=== PATIENT | female | born 1950 | race Caucasian/White ===

== ENCOUNTER → 2024-04-05 | Outpatient (CLI) | payer MEDICARE, OTHER ==
[2024-04-05 13:41] LABS: Source, Urine Clean Catch
[2024-04-05 14:50] LABS: Appearance, Urine Clear (Clear); Bilirubin, Urine Neg (Neg); Blood, Urine 1+ (Neg); Color, Urine Yellow (P-Yellow); Glucose Qualitative, Urine 1+ (Neg); Ketones, Urine Neg (Neg); Leukocyte Esterase, Urine 1+ (Neg); Nitrite, Urine Neg (Neg); Protein, Urine 1+ (Neg); Urobilinogen, Urine NORM (Normal)
[2024-04-05 15:06] LABS: Amorphous Heavy (0-Heavy)
[2024-04-05 15:07] LABS: Uric Acid Crystals Mod /hpf
[2024-04-05 15:09] LABS: Bacteria Few /hpf; Squamous Epithelial Cells Few /hpf (Few)
== END | disposition home or self-care (01) ==
LOC: LAB 13:37 → LAB SHORT 13:37
PROVIDERS: Physician Assistant
DX: N39.0 Urinary tract infection, site not specified (principal)
CPT/HCPCS: 81001; 87086; 87147

== ENCOUNTER 2024-06-01 10:54 | Day surgery (SDC) | payer MEDICARE, OTHER ==
[~2024-06-01] VITALS: Ht 142.2 cm; Wt 67.6 kg
[~2024-06-01 10:54] MED LIST: Lactated Ringer's 1,000 ML IV ONE; propofoL 50 ML IV ONE
[2024-06-01] MEDS ORDERED: ELIQUIS2.5 MG (11:17)
[2024-06-01] MEDS ORDERED: ALEN70 (11:17)
[2024-06-01] MEDS ORDERED: LOSARTAN POTAS100 M1 (11:18)
[2024-06-01] MEDS ORDERED: METAMUCIL POWD798 GM (11:19)
[2024-06-01] MEDS ORDERED: METO25ER (11:31)
[2024-06-01] MEDS ORDERED: SERT50 (11:33)
[2024-06-01] MEDS ORDERED: LOSA50 (11:33)
[2024-06-01] MEDS ORDERED: CARB10OTL (11:34)
[2024-06-01] MEDS ORDERED: ERGO50000 (11:34)
[2024-06-01] MEDS ORDERED: PRAV20 (11:35)
[2024-06-01] MEDS ORDERED: BISA10S (11:35)
[2024-06-01] MEDS ORDERED: DESITIN DAILY136 GM (11:36)
[2024-06-01] MEDS ORDERED: Milk Of Ma400 MG/5 M (11:37)
[2024-06-01] MEDS ORDERED: NYSTRIT (11:37)
[2024-06-01] MEDS ORDERED: LOPERAMIDE212 (11:37)
[2024-06-01] MEDS ORDERED: Lactated Ringer's 1,000 ML IV ONE (11:45)
== END 2024-06-01 13:05 | disposition home or self-care (01) ==
LOC: ORSCSDS 10:54
PROVIDERS: Internal Medicine Gastroenterology
PROC: 0DJD8ZZ Inspection of Lower Intestinal Tract, Via Natural or Artificial Opening Endoscopic (ICD-10-PCS; principal; 2024-06-01 12:30)
DX: Z12.11 Encounter for screening for malignant neoplasm of colon (principal); R19.5 Other fecal abnormalities; Z83.719 Family history of colon polyps, unspecified; K57.30 Diverticulosis of large intestine without perforation or abscess without bleeding; F41.9 Anxiety disorder, unspecified; I10 Essential (primary) hypertension; E78.5 Hyperlipidemia, unspecified; I48.0 Paroxysmal atrial fibrillation; Z79.01 Long term (current) use of anticoagulants; Z79.899 Other long term (current) drug therapy
CPT/HCPCS: J2704; J7120

== ENCOUNTER 2024-08-25 19:47 | Emergency (ER) | payer MEDICARE, OTHER ==
[~2024-08-25] VITALS: Ht 142.2 cm; Wt 66.7 kg
[~2024-08-25 19:47] MED LIST changes: +ALEN70; +BISA10S; +CARB10OTL; +DESITIN DAILY136 GM; +ELIQUIS2.5 MG; +ERGO50000; +LOPERAMIDE212; +LOSA50; +LOSARTAN POTAS100 M1; -Lactated Ringer's 1,000 ML IV ONE; +METAMUCIL POWD798 GM; +METO25ER; +Milk Of Ma400 MG/5 M; +NYSTRIT; +PRAV20; +SERT50; -propofoL 50 ML IV ONE
[2024-08-25] MEDS ORDERED: POLYTRIM EYE DR10 M1 BOTHEYES (20:11)
== END 2024-08-25 22:34 | disposition home or self-care (01) ==
LOC: ER 19:47
DX: H10.9 Unspecified conjunctivitis (principal); Z79.899 Other long term (current) drug therapy; Z88.5 Allergy status to narcotic agent; Z88.8 Allergy status to other drugs, medicaments and biological substances
CPT/HCPCS: 99282

== ENCOUNTER 2024-11-02 05:35 | Emergency (ER) | payer MEDICARE, OTHER ==
[~2024-11-02] VITALS: Ht 165.1 cm; Wt 90.7 kg
[~2024-11-02 05:35] MED LIST changes: -ALEN70; +ALEN70 PO; -BISA10S; +BISA10S PR; -ELIQUIS2.5 MG; +ELIQUIS2.5 MG PO; -LOSARTAN POTAS100 M1; +LOSARTAN POTAS100 M1 PO; -METAMUCIL POWD798 GM; +METAMUCIL POWD798 GM PO; +METO25ER PO; -Milk Of Ma400 MG/5 M; +Milk Of Ma400 MG/5 M PO; +POLYTRIM EYE DR10 M1 BOTHEYES; +THERA-D2000 UNIT PO
[2024-11-02] MEDS ORDERED: LOSA25 (05:52)
[2024-11-02] MEDS ORDERED: LOPERAMIDE212 PO (05:52)
[2024-11-02] MEDS ORDERED: METOPROLOL SUCC25 MG PO (05:52)
[2024-11-02] MEDS ORDERED: ELIQUIS5 M3 PO (05:52)
[2024-11-02 07:17] LABS: Hematocrit 32.7 % (33.0-51.0); Hemoglobin 10.5 g/dL (11.5-16.0); Mean Corpuscular HGB 28.7 pg (26.0-34.0); Mean Corpuscular HGB Conc 32.1 g/dL (31.5-36.5); Mean Corpuscular Volume 89 fL (80-100); Mean Platelet Volume 9.7 fL (9.1-12.4); NRBC ABSOLUTE 0.05 K/mm3 (0.00-0.02); NRBC Auto 1.5 /100 WBC (0.0-0.2); Platelet Count 578 K/mm3 (150-400); RDW Coefficient Variation 14.7 % (11.7-14.2); RDW Standard Deviation 48.5 fL (35.1-46.3); Red Blood Cell Count 3.66 M/mm3 (3.80-5.20); White Blood Cell Count 3.35 K/mm3 (4.00-11.30)
[2024-11-02 07:30] LABS: Source, Urine Clean Catch
[2024-11-02 07:36] LABS: Albumin, Blood 1.9 g/dL (3.4-5.0); Albumin/Globulin Ratio 0.4 (0.8-1.8); Bilirubin, Total 0.8 mg/dL (0.1-1.0); Bun/Creatinine Ratio 9.5 (12.0-20.0); Calcium, Blood 7.8 mg/dL (8.5-10.1); Creatinine, Blood 2.22 mg/dL (0.40-1.00); Globulin, Blood 4.5 g/dL (2.2-4.0); Potassium, Blood 4.2 mmol/L (3.5-5.5); Total Protein, Blood 6.4 g/dL (6.4-8.2)
[2024-11-02 07:40] LABS: BAND PERCENT MAN 44 % (0-8); BASOPHILS PERCENT MAN 0 % (0-2); EOSINOPHILS PERCENT MAN 0 % (0-6); LYMPHOCYTES ABSOLUTE MAN 0.33 K/mm3 (0.84-5.20); LYMPHOCYTES PERCENT MAN 10 % (21-46); METAMYELOCYTE ABSOLUTE MAN 0.06 K/mm3 (0.00-0.00); METAMYELOCYTE PERCENT MAN 2 % (0-0); MONOCYTES PERCENT MAN 6 % (4-13); NEUTROPHILS ABSOLUTE MAN 2.74 K/mm3 (1.96-9.15); SEG NEUTROPHILS PERCENT MAN 38 % (41-73); TOTAL CELLS COUNTED 100
[2024-11-02 07:48] LABS: Appearance, Urine Cloudy (Clear); Bilirubin, Urine Neg (Neg); Blood, Urine 3+ (Neg); Glucose Qualitative, Urine Neg (Neg); Ketones, Urine Neg (Neg); Leukocyte Esterase, Urine Neg (Neg); Nitrite, Urine Neg (Neg); Protein, Urine 2+ (Neg); Specific Gravity, Urine 1.025 (1.003-1.022); Urobilinogen, Urine NORM (Normal)
[2024-11-02] MEDS ORDERED: Piperacillin/Tazobactam Sod 3.375 GM in NS 100 ML IV ONE (07:55)
[2024-11-02 07:56] LABS: Color, Urine Yellow (P-Yellow)
[2024-11-02 08:01] LABS: Amorphous Heavy (0-Heavy)
[2024-11-02 08:02] LABS: Bacteria Mod /hpf; Squamous Epithelial Cells Many /hpf (Few); White Blood Cells, Urine 0-2 /hpf (0-5)
[2024-11-02] MEDS ORDERED: Lactated Ringer's 2,000 ML IV ONE (08:07)
[2024-11-02 11:07] LABS: Source, Urine Clean Catch
[2024-11-02 11:50] LABS: Appearance, Urine Cloudy (Clear); Blood, Urine 3+ (Neg); Color, Urine Yellow (P-Yellow); Glucose Qualitative, Urine Neg (Neg); Ketones, Urine Neg (Neg); Leukocyte Esterase, Urine 1+ (Neg); Nitrite, Urine Neg (Neg); Protein, Urine 3+ (Neg); Urobilinogen, Urine NORM (Normal)
[2024-11-02] MEDS ORDERED: Lactated Ringer's 1,000 ML IV ONE ×2 (11:50→16:35)
[2024-11-02 12:01] LABS: Bilirubin, Urine 1+ (Neg)
[2024-11-02 12:25] LABS: Amorphous Mod (0-Heavy); Mucus Heavy (0-Heavy)
[2024-11-02 12:26] LABS: Bacteria Many /hpf; Hyaline Casts 25-50 /lpf (0-2); Squamous Epithelial Cells Many /hpf (Few); Transitional Epithelial Cells Few /hpf (0-Rare)
[2024-11-02 13:17] LABS: Base Excess Venous -4.5 mmol/L; Bicarbonate Venous 20.4 mmol/L (24.0-30.0); PCO2 Venous 44.6 mmHg (38-42)
[2024-11-02 15:01] LABS: International Normalized Ratio 1.61; Prothrombin Time Results 17.1 Sec (9.7-11.5)
[2024-11-02] MEDS ORDERED: Piperacillin/Tazobactam Sod 3.375 GM in NS 100 ML IV SCH (17:23)
== END 2024-11-02 21:17 | disposition home or self-care (01) ==
LOC: ER 05:35
PROVIDERS: Emergency Medicine; Student in an Organized Health Care Education/Training Program
DX: A41.9 Sepsis, unspecified organism (principal); R65.21 Severe sepsis with septic shock; J96.01 Acute respiratory failure with hypoxia; N17.9 Acute kidney failure, unspecified; E87.20 Acidosis, unspecified; K83.2 Perforation of bile duct; D72.825 Bandemia; I48.91 Unspecified atrial fibrillation; E78.5 Hyperlipidemia, unspecified; I10 Essential (primary) hypertension; Z88.1 Allergy status to other antibiotic agents; Z79.899 Other long term (current) drug therapy; Z79.01 Long term (current) use of anticoagulants
CPT/HCPCS: 51702; 51798; 71045; 74177; 75989; 80053; 81001; 82803; 83605; 83690; 84484; 85025; 85610; 85730; 87040; 87077; 87086; 87186; 93005; 93010; 96361-59; 96365-59; 99285-25; C1751; J2543; J7060; J7120; Q9967